=== PATIENT | female | born 2005 ===

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

== ENCOUNTER 2023-03-12 15:23 | Outpatient (REF) | payer OTHER, BC, SELFPAY ==
[2023-03-14 14:47] LABS: Chlamydia Result Negative (Negative); GC Result Negative (Negative)
== END 2023-03-12 15:24 | disposition home or self-care (01) ==
LOC: LBN 15:23
PROVIDERS: Physician Assistant Medical; Visit Provider Physician Assistant
DX: N39.0 Urinary tract infection, site not specified (principal); N77.1 Vaginitis, vulvitis and vulvovaginitis in diseases classified elsewhere; B96.89 Other specified bacterial agents as the cause of diseases classified elsewhere
CPT/HCPCS: 87491; 87591; 87086; 87480; 87510; 87660